=== PATIENT | female | born 1960 | race Caucasian/White ===

== ENCOUNTER 2020-07-13 12:15 | Emergency (ER) | payer OTHER ==
--- NOTE | 2020-07-13 12:42 | EDM.PDOC ---
ED HPI GENERAL MEDICAL PROBLEM - General Chief Complaint: Lower Extremity Injury/Pain Stated Complaint: FELL INJURD LEFT ANKLE AND LEFT SIDE RIBS Time Seen by Provider: 07/13/20 12:35 Source of Information: Reports: Patient, RN, RN Notes Reviewed History Limitations: Reports: No Limitations - History of Present Illness INITIAL COMMENTS - FREE TEXT/NARRATIVE: Pt is a 59 year old female who presents to the ER with c/o left rib pain and left ankle pain after a fall. Patient states she tripped over her brief case, twisting her ankle and falling against a table. Patient states she did not hit her head and was not knocked out. Patient rates pain 6/10. Denies need for pain medication. States she did take some Cortisol, as she has Gilberto's disease. Denies SOB. Patient did ambulate on the left foot/ankle into the ER. Onset: Today, Sudden Left Ankle Pain Score (Numeric/FACES): 6 Left Thoracic Pain Score (Numeric/FACES): 6 - Related Data Allergies Allergy/AdvReac Type Severity Reaction Status Date / Time erythromycin base Allergy Cannot Verified 07/13/20 12:43 Remember Home Meds: Home Meds Calcium Carbonate/Vitamin D3 [Calcium Carbonate/Vitamin D 600 MG-200 Unit] 1 tab PO BID 07/13/20 [History] Fludrocortisone [Fludrocortisone Acetate] 0.1 mg PO DAILY PRN 07/13/20 [History] Hydrocortisone [Cortef] 30 mg PO DAILY PRN 07/13/20 [History] Liothyronine [Cytomel] 5 mcg PO DAILY 07/13/20 [History] Loratadine [Claritin] 10 mg PO DAILY PRN 07/13/20 [History] Nortriptyline HCl [Pamelor] 10 mg PO DAILY 07/13/20 [History] Omeprazole 20 mg PO DAILY 07/13/20 [History] Ondansetron [Zofran ODT] 4 mg PO Q4H PRN 07/13/20 [History] Propranolol [Inderal] 40 mg PO BID 07/13/20 [History] metroNIDAZOLE [Metrogel-Vaginal] 70 gm VG BID 07/13/20 [History] Review of Systems - Review of Systems Review Of Systems: Comprehensive ROS is negative, except as noted in HPI. ED EXAM, GENERAL - Physical Exam Exam: See Below Exam Limited By: No Limitations General Appearance: Alert, WD/WN, Mild Distress Eye Exam: Bilateral Eye: EOMI, Normal Inspection Ears: Normal External Exam, Hearing Grossly Normal Nose: Normal Inspection Throat/Mouth: Normal Inspection, Normal Voice, No Airway Compromise Head: Atraumatic, Normocephalic Neck: Normal Inspection, Supple, Non-Tender, Full Range of Motion Respiratory/Chest: No Respiratory Distress, Lungs Clear, Normal Breath Sounds, No Accessory Muscle Use, Other (tenderness to left lateral ribs) Cardiovascular: Normal Peripheral Pulses, Regular Rate, Rhythm, No Edema, No Gallop, No JVD, No Murmur, No Rub Peripheral Pulses: 2+: Radial (L), Radial (R) GI/Abdominal: Normal Bowel Sounds, Soft, Non-Tender, No Organomegaly, No Distention, No Abnormal Bruit, No Mass (Female) Exam: Deferred Rectal (Female) Exam: Deferred Back Exam: Decreased Range of Motion, Other (left lateral rib pain) Extremities: Joint Swelling (left ankle), Leg Pain (left ankle), Limited Range of Motion (left ankle) Neurological: Alert, Oriented, CN II-XII Intact, Normal Cognition, Normal Reflexes, No Motor/Sensory Deficits Psychiatric: Normal Affect, Normal Mood, Tearful Skin Exam: Warm, Dry, Intact, Normal Color, No Rash Lymphatic: No Adenopathy Course - Vital Signs Last Recorded V/S: Last Vital Signs Temp 98.0 F 07/13/20 12:20 Pulse 83 07/13/20 12:20 Resp 18 07/13/20 12:20 BP 155/85 H 07/13/20 12:20 Pulse Ox 99 07/13/20 12:20 - Radiology Interpretation Free Text/Narrative:: Ribs left with chest xray: Cardiomediastinal silhouette is normal in size and contour. Lungs are clear. No pleural effusion or pneumothorax. Acute non-displaced left ninth rib fracture. Chronic appearing left seventh rib fracture. Left ankle xray: No fracture or dislocation. No AVN or erosive changes. Plantar calcaneal spur. See rad report Departure - Departure Time of Disposition: 13:44 Disposition: Home, Self-Care 01 Condition: Fair Clinical Impression: Left ankle sprain Qualifiers: Encounter type: initial encounter Involved ligament of ankle: unspecified ligament Qualified Code(s): S93.402A - Sprain of unspecified ligament of left ankle, initial encounter Left rib fracture Qualifiers: Encounter type: initial encounter Rib fracture type: single rib Fracture type: closed Qualified Code(s): S22.32XA - Fracture of one rib, left side, initial encounter for closed fracture - Discharge Information *PRESCRIPTION DRUG MONITORING PROGRAM REVIEWED*: No *COPY OF PRESCRIPTION DRUG MONITORING REPORT IN PATIENT J CARLOS: No Instructions: How to Use a Stirrup Ankle Brace, [id number], How to Use Cold Therapy, [id number], Ankle Sprain, [id number], Rib Fracture, [id number] Referrals: PCP,None [Ordering Only Provider] - Forms: ED Department Discharge Additional Instructions: May use Tylenol and/or Ibuprofen as directed for pain Ice the area as tolerated Elevate left ankle and rest as much as possible Splint left ribs with movement Cough and deep breathe frequently Follow up with your primary care facility Sepsis Event Note (ED) - Evaluation Sepsis Screening Result: No Definite Risk - Focused Exam Vital Signs: Vital Signs Temp Pulse Resp BP Pulse Ox 07/13/20 12:20 98.0 F 83 18 155/85 H 99
--- NOTE | 2020-07-13 13:25 | CR ---
[id number] RAD/RAD Ankle Left 3V Min Exam: RAD Ankle Left 3V Min Indication:FALL, INJURY. Comparison: No prior imaging for comparison. Discussion/Impression: Scattered changes of osteoarthritis in the hindfoot and midfoot. Joint spaces remain well-preserved. No fracture or dislocation. No AVN or erosive changes. Plantar calcaneal spur. Mars Stringer MD 07/13/20 [id number] Thank you for allowing us to participate in the care of your patient.
--- NOTE | 2020-07-13 13:27 | CR ---
[id number] RAD/RAD Ribs Left W PA Chest EXAM: RAD Ribs Left W PA Chest INDICATION: FALL, INJURY. COMPARISON: None. DISCUSSION: Cardiomediastinal silhouette is normal in size and contour. Lungs are clear. No pleural effusion or pneumothorax. Acute nondisplaced left ninth rib fracture. Chronic appearing left seventh rib fracture. IMPRESSION: As above. Mars Stringer MD 07/13/20 [id number] Thank you for allowing us to participate in the care of your patient.
== END 2020-07-13 13:55 | disposition home or self-care (01) ==
LOC: VM.ED 12:15
DX: S22.32XA Fracture of one rib, left side, initial encounter for closed fracture (principal); S93.402A Sprain of unspecified ligament of left ankle, initial encounter; Z88.1 Allergy status to other antibiotic agents; X50.1XXA Overexertion from prolonged static or awkward postures, initial encounter
CPT/HCPCS: 71101-LT; 73610-LT; 99283; 99283-25